=== PATIENT | male | born 1990 | race African-American/Black ===

== ENCOUNTER 2019-02-10 17:56 | Observation (INO) ==
--- NOTE | 2019-02-10 18:12 | Emergency Department Note ---
ED Disposition Clinical Impression: Dehydration Heat exhaustion Qualifiers: Encounter type: initial encounter Qualified Code(s): T67.5XXA - Heat exhaustion, unspecified, initial encounter Heat cramps Qualifiers: Encounter type: initial encounter Qualified Code(s): T67.2XXA - Heat cramp, ini tial encounter Leukocytosis Qualifiers: Leukocytosis type: unspecified Qualified Code(s): D72.829 - Elevated white blood cell count, unspecified Disposition: Admitted as Observation Condition on Discharge: Fair Referrals: Provider,Referral, [Primary Care Provider] - - Critical Care Critical Care Time: No Attestation: On 02/10/19, the high probability of a clinically significant, sudden or life threatening deterioration of the following system(s) required my full and direct attention, intervention and personal management. The time I documented below is in addition to time spent performing reported procedures but includes the following listed in this critical care notation. Medical Decision Making - [place] Inquiry Pt receiving controlled substance: No Vital Signs: 02/10/19 17:58 Temperature 98.8 F Temperature Source Oral Pulse Rate [Right] 94 H Respiratory Rate 20 Blood Pressure [Right Arm] 124/71 Blood Pressure Mean [Right Arm] 88 Blood Pressure Source [Right Arm] Automatic Cuff Blood Pressure Position [Right Arm] Supine 02 Sat by Pulse Oximetry 100 Oxygen Delivery Method Room Air - Lab Data Lab Results 02/10/19 18:00: WBC 23.6 H*, RBC 5.71, Hgb 16.7, Hct 53.2 H, MCV 93.3, MCH 29.3, MCHC 31.4 L, RDW 13.8, Plt Count 521 H, MPV 7.1 L, Neut % (Auto) 78.0, Lymph % (Auto) 14.2, [place] % (Auto) 5.9, Eos % (Auto) 1.6, Baso % (Auto) 0.4, Neut # (Auto) 18.4 H, Lymph # (Auto) 3.3, [place] # (Auto) 1.4 H, Eos # (Auto) 0.4, Baso # (Auto) 0.1 02/10/19 18:00: Sodium 136, Potassium 3.6, Chloride 93 L, Carbon Dioxide 24, Anion Gap 22.6 H, BUN 25 H, Creatinine 1.97 H, Estimated Creat Clear 64, Estimated GFR 40 L, Est GFR ( Amer) 49 L, Glucose 141 H, Calcium 10.5 H, Total Bilirubin 1.3 H, AST 27, ALT 22, Alkaline Phosphatase 201 H, Total Protein 9.7 H, Albumin 5.6 H, Globulin 4.1 H, Albumin/Globulin Ratio 1.4 02/10/19 18:00: Total Creatine Kinase 396 H, CK-MB (CK-2) 1.0, CK-MB (CK-2) Rel Index 0.3, Troponin I < 0.02, Lipase 48 L 02/10/19 19:15: Lactate 2.2 H Result diagrams: 02/10/19 18:00 02/10/19 18:00 Orders (Tests/Meds): ED MEDICATIONS Generic Name Dose Route Start Last Admin Trade Name Freq PRN Reason Stop Dose Admin Sodium Chloride 1,000 mls @ 999 mls/hr 02/10/19 18:15 02/10/19 18:13 Sod Chlor 0.9% 1000ml Bag IV 02/10/19 19:15 999 mls/hr .[id number] MARIA GUADALUPE Administration Discontinued Medications Generic Name Dose Route Start Last Admin Trade Name Freq PRN Reason Stop Dose Admin Ondansetron HCl 4 mg 02/10/19 18:11 02/10/19 18:13 Zofran 4mg/2ml Vial IV 02/10/19 18:12 4 mg ONCE ONE Administration Promethazine HCl 12.5 mg 02/10/19 18:46 02/10/19 18:54 Phenergan 25mg/Ml 1ml Vial IV 02/10/19 18:47 12.5 mg ONCE ONE Administration Sodium Chloride 25 ml 02/10/19 18:46 02/10/19 18:55 Sod Chlor 0.9% 25ml Bag IV 02/10/19 18:47 25 ml ONCE ONE Administration Sodium Chloride 1,000 ml 02/10/19 19:13 02/10/19 19:19 Sod Chlor 0.9% 1000ml Bag IV 02/10/19 19:14 1,000 ml BOLUS ONE Administration ORDERS Category Date Time Status CT abdomen pelvis wo con Stat Cat Scan 02/10/19 18:45 Taken Chest XR 2 view (NOT portable) [XR chest 2V] Stat Exams 02/10/19 18:44 Taken Complete Blood Count Auto Diff Stat Lab 02/10/19 18:00 Results Drug Screen,Urine Stat Lab 02/10/19 18:18 Ordered Urinalysis and Microscopic Stat Lab 02/10/19 18:18 Ordered Blood Culture Stat Micro 02/10/19 19:15 Received - CT Data CT Scan: Abdomen, Pelvis Time Received: 19:[address] Reviewed: Yes: I have viewed the radiologist's interpretation Findings Narrative: CT scan interpreted by [facility] radiologist. Faxed report received and reviewed: No acute intra-abdominal abnormality. Normal appendix. - ECG Data Tracing #1 EKG interpreted by Caesar Arredondo MD: Rhythm: sinus Rate: 84 [place]: normal Ectopy: none Conduction: normal ST Segment Changes: none T Wave Changes: none Q Waves: none No evidence of acute ischemia or injury - Physician Consults Physician Consulted: nikhil Lara Time: 20:16 Reason -: Admission Comment/Response: Agrees to admit the patient to the hospital. We discussed the patient's clinical information, including history, exam, laboratory and radiology results and ED course. Per hospital procedure, I will write temporary bridge inpatient orders on the patient. Specific orders requested by the admitting physician: Continue IV fluids General Adult HPI - General Chief complaint: Dizziness Stated complaint: cramping, tingling in arms Time Seen by Provider: 02/10/19 18:12 Mode of Arrival: Ambulatory Limitations: No Limitations Description of Symptoms (Recalled from ER Triage Doc. by RN): Naldo working in the heat all day and started to cramp up and tingling and vomiting for the last hour - History of Present Illness HPI narrative: States he has been working out in the heat building fence all day. States he has been drinking water all day. An hour ago he began tingling all over his body, cramping all over his body, having lower abdominal pain, and vomiting. His mother says "I think his potassium bottomed out". She says "he down to bunch of water all at once". She says "he is dehydrated". Denies chest pain or shortness of breath. Mother says he has a history of renal tubular acidosis. - Related Data Home Medications Medication Instructions Recorded Confirmed Buprenorphine HCl/Naloxone HCl 1.5 each SL DAILY 10/01/17 12/20/18 [Suboxone 8 mg-2 mg Sl Film] Quetiapine Fumarate 50 mg PO DAILY 12/20/18 12/20/18 Previous Rx's Medication Instructions Recorded levoFLOXacin [Levaquin 500mg 500 mg PO DAILY #7 tab 12/20/18 tab] Allergies Allergy/AdvReac Type Severity Reaction Status Date / Time No Known Allergies Allergy Verified 01/14/18 11:40 [facility] History - Hepatitis A Screen Drug use history?: No High risk sexual behaviors?: No History of sexually transmitted infection?: No Currently employed?: No Childcare worker?: No Do you have indoor plumbing?: Yes Do you have electricity?: Yes Attestation statement:: This patient has been screened for Hepatitis A risk factors. I have reviewed the patient's past medical history: Yes Medical History: Denies:: Diabetes Mellitus Type 1, Diabetes Mellitus Type 2 Laterality Cases: Bilateral: Tonsillectomy - Social History Educational Level: Completed High School Smoking Status: Current every day smoker Tobacco Type: cigarettes # Packs/Day (cigarettes): 1 #Yrs smoked (if former smoker): 1 Alcohol Intake: never Substance Use Type: opiates Occupational Status: unemployed Housing: house Household Members: family ROS Obtained: Yes All systems reviewed & no additional complaints - Constitutional Constitutional: Reports weakness - Cardiovascular Cardiovascular: Denies chest pain - Respiratory Respiratory: No dyspnea - Gastrointestinal Gastrointestingal: Reports: abdominal pain, vomiting. Denies: diarrhea - Musculoskeletal Musculoskeletal: Reports muscle cramps - Neurologic Neurologic: Reports tingling Physical Exam - General General appearance: alert, anxious - Head Head exam: atraumatic, normocephalic - Eye Eye exam: Present: normal appearance, EOMI - ENT ENT exam: Present: mucous membranes moist - Neck Neck exam: Present: normal inspection, trachea midline - Chest Chest inspection: Present: normal inspection, symmetric chest wall rise - Respiratory Respiratory exam: Present: normal lung sounds bilaterally. Absent: respiratory distress - Cardiovascular Cardiovascular exam: Present: regular rate, normal rhythm, normal heart sounds - Abdominal Exam Abdominal exam: Present: soft, tenderness, normal bowel sounds. Absent: distention, guarding, rebound, rigidity Abdominal tenderness: Present: diffuse, mild - Extremities Exam Extremities exam: Present: normal inspection - Neurological Exam Neurological exam: Present: alert, oriented X3, CN II-XII intact. Absent: motor sensory deficit - Psychiatric Psychiatric exam: Present: anxious - Skin Skin exam: Present: warm, dry
[2019-02-10 18:27] LABS: Basophils # 0.1 K/mm3 (0-0.2); Basophils % 0.4 % (0.1-2.0); Eosinophils # 0.4 K/mm3 (0.0-0.4); Eosinophils % 1.6 % (0.1-12.0); Hematocrit 53.2 % (42.0-52.0); Hemoglobin 16.7 g/dL (14.1-18.0); Lymphocytes # 3.3 K/mm3 (0.7-4.5); Lymphocytes % 14.2 % (10-50); Mean Corpuscular HGB Conc 31.4 g/dL (31.8-35.4); Mean Corpuscular Volume 93.3 fl (80-94); Mean Platelet Volume 7.1 fl (7.4-10.4); Monocytes # 1.4 K/mm3 (0.1-1.0); Monocytes % 5.9 % (1.7-9.3); Neutrophils # 18.4 K/mm3 (1.8-7.8); Platelet Count 521 K/mm3 (142-424); Red Blood Count 5.71 M/mm3 (4.60-6.20); Red Cell Distribution Width 13.8 % (11.5-17.5); White Blood Count 23.6 K/mm3 (4.8-10.8)
[2019-02-10 18:37] LABS: Albumin Level 5.6 gm/dL (3.4-5.0); Albumin/Globulin Ratio 1.4 (1.1-1.8); Anion Gap 22.6 mEq/L (5-15); Bilirubin,Total 1.3 mg/dL (0.2-1.0); Calcium 10.5 mg/dL (8.5-10.1); Globulin 4.1 gm/dl (1.3-3.2); Total Protein,Serum 9.7 gm/dL (6.4-8.2)
[2019-02-10 18:50] LABS: Creatine Kinase 396 U/L (39-308)
[2019-02-10 20:16] LABS: Anisocytosis 1+; Lymphocytes % 20 % (10-50); Monocytes % 2 % (2-9); Neutrophils % 77 % (42-76); Total Cells Counted 100
[2019-02-10 22:12] LABS: Appearance,Urine CLEAR (Clear); Blood, Urine TRACE-L (Negative); Color,Urine YELLOW (Yellow); Glucose,Urine (UA) Negative (Negative); Ketones,Urine 3+ (Negative); Leukocyte Esterase,Urine Negative (Negative); Microscopic, Urine URINE MICROSCOPIC (MICROSCOPIC); Protein,Urine TRACE (Negative); Specific Gravity, Urine 1.025 (1.005-1.030)
[2019-02-10 22:22] LABS: Amphetamine/Metha Screen,Urine Negative ng/mL (<1000); Barbiturates Screen,Urine Negative ng/mL (<200); Benzodiazepines Screen,Urine Negative ng/mL (<200); Cannabinoid Screen,Urine Positive ng/mL (<50); Cocaine Screen,Urine Negative ng/mL (<300); Methadone Screen,Urine Negative ng/mL (<300); Opiate Screen,Urine Negative ng/mL (<300); Phencyclidine Screen,Urine Negative ng/mL (<25)
[2019-02-10 22:53] LABS: Bilirubin,Urine Negative (Negative)
[2019-02-10 23:09] LABS: WBC,Urine Occasional #/hpf (0-3)
[2019-02-10 23:10] LABS: Bacteria,Urine Trace /lpf; Hyaline Casts,Urine Occasional #/lpf (0); Squamous Epithelial Cell,Urine Occasional #/hpf (0-5)
[2019-02-11 07:19] LABS: Anion Gap 19.3 mEq/L (5-15)
[2019-02-11 07:22] LABS: Basophils # 0.1 K/mm3 (0-0.2); Basophils % 0.3 % (0.1-2.0); Eosinophils % 0.2 % (0.1-12.0); Hematocrit 44.3 % (42.0-52.0); Lymphocytes # 1.4 K/mm3 (0.7-4.5); Lymphocytes % 8.1 % (10-50); Mean Corpuscular HGB Conc 30.2 g/dL (31.8-35.4); Mean Corpuscular Volume 95.4 fl (80-94); Mean Platelet Volume 7.2 fl (7.4-10.4); Monocytes # 0.7 K/mm3 (0.1-1.0); Neutrophils # 14.5 K/mm3 (1.8-7.8); Neutrophils % 87.4 % (37.0-80.0); Platelet Count 403 K/mm3 (142-424); Red Blood Count 4.65 M/mm3 (4.60-6.20); Red Cell Distribution Width 13.8 % (11.5-17.5); White Blood Count 16.6 K/mm3 (4.8-10.8)
--- NOTE | 2019-02-11 07:38 | Pharmacy Consult Notes ---
[facility] Pharmacy VTE Monitoring - Patient Demographics Admission date: 02/10/19 Report Date: 02/11/19 Time: 07:38 Allergies/Adverse Reactions: Patient Allergies No Known Allergies Allergy (Verified 01/14/18 11:40) Height: 1.68 m Weight: 70.364 kg Patient Problems: Current Active Problems Heat exhaustion (Acute) Dehydration (Acute) Heat cramps (Acute) Leukocytosis (Acute) - VTE Risk Labs: VTE Related Lab Results Hgb 16.7 g/dL (14.1-18.0) 02/10/19 18:00 Hct 53.2 % (42.0-52.0) H 02/10/19 18:00 Plt Count 521 K/mm3 (142-424) H 02/10/19 18:00 BUN 25 mg/dL (7-18) H 02/10/19 18:00 Creatinine 1.97 mg/dL (0.70-1.30) H 02/10/19 18:00 Estimated Creat Clear 64 mL/min (50-200) 02/10/19 18:00 Was VTE Risk Assessment Performed: Yes VTE Score: 2 VTE Risk Level: Very Low Risk - Prophylaxis VTE Prophylaxis Ordered?: Yes Types of VTE Prophylaxis: TEDS Knee High Location of Applied Device: Bilateral Lower Extremeties - VTE Diagnosis Confirmed Treatment or plan recommended: Continue Current Treatment
[2019-02-11 07:57] LABS: Hemoglobin 13.4 g/dL (14.1-18.0)
[2019-02-11 08:20] LABS: Calcium 8.6 mg/dL (8.5-10.1)
[2019-02-11 08:59] VITALS: BP 111/45
[2019-02-11 10:16] LABS: Lymphocytes % 8 % (10-50); Monocytes % 5 % (2-9); Neutrophils % 87 % (42-76); Total Cells Counted 100
[2019-02-11 10:17] LABS: RBC Morphology Normal
--- NOTE | 2019-02-11 13:14 | H&P/Discharge Summary ---
General - General Admission date:: 02/10/19 Discharge date: 02/11/19 *Admission Date: 02/10/19 *History of present illness: 28 YOM sleeping quietly, awakens easily. Denies N/V and reports he feels better this morning. He has tolerated fluids W/O difficulty. States he has been working out in the heat building fence all day. States he has been drinking water all day. An hour ago he began tingling all over his body, cramping all over his body, having lower abdominal pain, and vomiting. His mother says "I think his potassium bottomed out". She says "he down to bunch of water all at once". She says "he is dehydrated". Denies chest pain or shortness of breath. (Per Dr. Arredondo). [facility] History Medical History: Denies:: Cancer, Diabetes Mellitus Type 1, Diabetes Mellitus Type 2, MRSA *Have you ever received a pneumonia vaccine?: No *Have you received a flu vaccine this season?: No Laterality Cases: Bilateral: Tonsillectomy Other Surgeries: Yes: Hernia Repair, Other (Spider bite) Amputation: No Fractures: No - *Social History Educational Level: Attended High School Smoking Status: Current every day smoker Tobacco Type: cigarettes, e-cigarettes # Packs/Day (cigarettes): 1 #Yrs smoked (if former smoker): 1 Alcohol Intake: never Substance Use Type: opiates *Occupational Status:: unemployed Housing: house Household Members: family *Travel in the last 8 weeks: None Family Hx:: No significant family history Review of Systems - Review of Systems Review of systems:: pertinent systems reviewed and negative unless documented below - Constitutional Reports fatigue, Reports lack of energy, Denies body ache(s) - ENT Denies pain with swallowing, Denies sinus pressure - *Cardiovascular Denies chest pain, Denies irregular heart rhythm - *Respiratory Denies chest congestion, Denies shortness of breath - *Gastrointestinal Reports nausea, Denies coffee ground vomit, Denies difficulty swallowing - *Genitourinary Denies painful urination, Denies scrotal swelling - *Musculoskeletal Denies joint pain, Denies decreased muscle mass - Integumentary/Breasts Denies bleeding lesions, Denies yellowing of the skin - *Neurologic Reports tingling, Reports weakness, Denies abnormal hearing, Denies seizure-like activity - Psychiatric Denies thoughts of hurting/killing others, Denies thoughts of hurting/killing yourself - Endocrine Denies rapid, pounding, or irregular heartbeat - Hematologic/Lymphatic Denies easy bleeding, Denies easy bruising - Allergic/Immunologic Denies lip swelling, Denies throat swelling Exam Vital signs and Labs for Last 24 Hours: Temp Pulse Resp BP Pulse Ox 98.9 F 87 18 111/45 L 100 02/11/19 08:57 02/11/19 08:57 02/11/19 08:57 02/11/19 08:57 02/11/19 08:57 Laboratory Results - last 24 hr 02/10/19 18:00: WBC 23.6 H*, RBC 5.71, Hgb 16.7, Hct 53.2 H, MCV 93.3, MCH 29.3, MCHC 31.4 L, RDW 13.8, Plt Count 521 H, MPV 7.1 L, Neut % (Auto) 78.0, Lymph % (Auto) 14.2, [place] % (Auto) 5.9, Eos % (Auto) 1.6, Baso % (Auto) 0.4, Neut # (Auto) 18.4 H, Lymph # (Auto) 3.3, [place] # (Auto) 1.4 H, Eos # (Auto) 0.4, Baso # (Auto) 0.1, Total Counted 100, Neutrophils % (Manual) 77 H, Lymphocytes % (Manual) 20, Monocytes % (Manual) 2, Basophils % (Manual) 1.0, Platelet Estimate Normal, Anisocytosis 1+ 02/10/19 18:00: Sodium 136, Potassium 3.6, Chloride 93 L, Carbon Dioxide 24, Anion Gap 22.6 H, BUN 25 H, Creatinine 1.97 H, Estimated Creat Clear 64, Estimated GFR 40 L, Est GFR ( Amer) 49 L, Glucose 141 H, Calcium 10.5 H, Total Bilirubin 1.3 H, AST 27, ALT 22, Alkaline Phosphatase 201 H, Total Protein 9.7 H, Albumin 5.6 H, Globulin 4.1 H, Albumin/Globulin Ratio 1.4 02/10/19 18:00: Total Creatine Kinase 396 H, CK-MB (CK-2) 1.0, CK-MB (CK-2) Rel Index 0.3, Troponin I < 0.02, Lipase 48 L 02/10/19 19:15: Lactate 2.2 H 02/10/19 22:00: Urine Color Yellow, Urine Appearance Clear, Urine pH 6.0, Ur Specific [place] 1.025, Urine Protein Trace, Urine Glucose (UA) Negative, Urine Ketones 3+, Urine Blood Trace-l, Urine Nitrate Negative, Urine Bilirubin Negative, Urine Urobilinogen 1.0, Ur Leukocyte Esterase Negative, Urine WBC Occasional, Ur Squamous Epith Cells Occasional, Urine Bacteria Trace, Hyaline Casts Occasional 02/10/19 22:00: Urine Opiates Screen Negative, Urine Methadone Screen Negative, Ur Barbituates Screen Negative, Ur Phencyclidine Scrn Negative, Ur Amphetamines Screen Negative, U Benzodiazepines Scrn Negative, Urine Cocaine Screen Negative, U Marijuana (THC) Screen Positive H 02/10/19 23:23: Lactate 1.2 02/11/19 06:34: WBC 16.6 H D, RBC 4.65, Hgb 13.4 L D, Hct 44.3, MCV 95.4 H, MCH 28.8, MCHC 30.2 L, RDW 13.8, Plt Count 403, MPV 7.2 L, Neut % (Auto) 87.4 H, Lymph % (Auto) 8.1 L, [place] % (Auto) 4.0, Eos % (Auto) 0.2, Baso % (Auto) 0.3, Neut # (Auto) 14.5 H, Lymph # (Auto) 1.4, [place] # (Auto) 0.7, Eos # (Auto) 0.0, Baso # (Auto) 0.1, Total Counted 100, Neutrophils % (Manual) 87 H, Lymphocytes % (Manual) 8 L, Monocytes % (Manual) 5, Platelet Estimate Normal, RBC Morphology Normal 02/11/19 06:34: Sodium 137, Potassium 4.3, Chloride 101, Carbon Dioxide 21, Anion Gap 19.3 H, BUN 12 D, Creatinine 0.69 L D, Estimated Creat Clear 157, Estimated GFR 136, Est GFR ( Amer) 164 D, Glucose 104 D, Calcium 8.6 D I & O for Last 24 hours: Intake & Output 02/08/19 02/09/19 02/10/19 02/11/19 23:59 23:59 23:59 23:59 Intake Total 2120 / 2120 2186 / 2186 Output Total 550 / 550 600 / 600 Balance 1570 / 1570 1586 / 1586 Weight 155 lb 2 oz - Constitutional no acute distress - *Routine HEENT Exam Head: Present: normocephalic, atraumatic. Absent: scalp tenderness, tenderness of temporal artery Eye: Present: EOMI, PERRL, normal accommodation. Absent: conjunctival icterus, periorbital tenderness ENT: Present: mucous membranes dry. Absent: sinus tenderness - *Routine Neck Exam Present: supple, full ROM, trachea midline. Absent: JVD, tracheal deviation - *Routine Respiratory Exam Present: CTA bilaterally. Absent: accessory muscle use - *Routine Cardiovascular Exam Present: RRR. Absent: irregular rhythm, JVD - *Routine Abdominal Exam Present: soft, normoactive bowel sounds. Absent: tenderness, firm - *Routine Extremities Exam Present: full ROM, pulses intact. Absent: cyanosis, calf tenderness - Routine Back/Spine/Pelvis Exam Back/Spine: Present: full ROM. Absent: CVA tenderness, pain with flexion - *Routine Skin Exam Present: intact. Absent: cyanosis, wounds - *Routine Neurological Exam Present: alert, oriented X3, CN II-XII intact, moving all extremities. Absent: altered mental status, tremors Hospital Course Hospital Course: 28 YOM States he has been working out in the heat building fence all day. States he has been drinking water all day. An hour ago he began tingling all over his body, cramping all over his body, having lower abdominal pain, and vomiting. His mother says "I think his potassium bottomed out". She says "he down to bunch of water all at once". She says "he is dehydrated". Denies chest pain or shortness of breath. Mother says he has a history of renal tubular acidosis. In the ED he rec Zofran Phenergan IVP and 3 Liters of IVF In ED H/H 16.7/53.2 Na 136, K 3.6, BUN/CR 25/1.97, After IVF 02/11/19 0600 H/H 13.4/44.3 Na 137, K 4.3, BUN/CR 12/0.69 TROP NEG CXR No acute findings Abd/Pelvic CT No acute findings He denies N/V and is agreeable to D/C to home He has sukhdeep fluids/solids without difficulty. Results Labs on day of discharge: Labs from last 24 hours 02/11/19 02/11/19 02/10/19 06:34 06:34 23:23 WBC 16.6 H D RBC 4.65 Hgb 13.4 L D Hct 44.3 MCV 95.4 H MCH 28.8 MCHC 30.2 L RDW 13.8 Plt Count 403 MPV 7.2 L Neut % (Auto) 87.4 H Lymph % (Auto) 8.1 L [place] % (Auto) 4.0 Eos % (Auto) 0.2 Baso % (Auto) 0.3 Neut # (Auto) 14.5 H Lymph # (Auto) 1.4 [place] # (Auto) 0.7 Eos # (Auto) 0.0 Baso # (Auto) 0.1 Total Counted 100 Neutrophils % (Manual) 87 H Lymphocytes % (Manual) 8 L Monocytes % (Manual) 5 Basophils % (Manual) Platelet Estimate Normal RBC Morphology Normal Anisocytosis Sodium 137 Potassium 4.3 Chloride 101 Carbon Dioxide 21 Anion Gap 19.3 H BUN 12 D Creatinine 0.69 L D Estimated Creat Clear 157 Estimated GFR 136 Est GFR ( Amer) 164 D Glucose 104 D Lactate 1.2 Calcium 8.6 D Total Bilirubin AST ALT Alkaline Phosphatase Total Creatine Kinase CK-MB (CK-2) CK-MB (CK-2) Rel Index Troponin I Total Protein Albumin Globulin Albumin/Globulin Ratio Lipase Urine Color Urine Appearance Urine pH Ur Specific [place] Urine Protein Urine Glucose (UA) Urine Ketones Urine Blood Urine Nitrate Urine Bilirubin Urine Urobilinogen Ur Leukocyte Esterase Urine WBC Ur Squamous Epith Cells Urine Bacteria Hyaline Casts Urine Opiates Screen Urine Methadone Screen Ur Barbituates Screen Ur Phencyclidine Scrn Ur Amphetamines Screen U Benzodiazepines Scrn Urine Cocaine Screen U Marijuana (THC) Screen 02/10/19 02/10/19 02/10/19 22:00 22:00 19:15 WBC RBC Hgb Hct MCV MCH MCHC RDW Plt Count MPV Neut % (Auto) Lymph % (Auto) [place] % (Auto) Eos % (Auto) Baso % (Auto) Neut # (Auto) Lymph # (Auto) [place] # (Auto) Eos # (Auto) Baso # (Auto) Total Counted Neutrophils % (Manual) Lymphocytes % (Manual) Monocytes % (Manual) Basophils % (Manual) Platelet Estimate RBC Morphology Anisocytosis Sodium Potassium Chloride Carbon Dioxide Anion Gap BUN Creatinine Estimated Creat Clear Estimated GFR Est GFR ( Amer) Glucose Lactate 2.2 H Calcium Total Bilirubin AST ALT Alkaline Phosphatase Total Creatine Kinase CK-MB (CK-2) CK-MB (CK-2) Rel Index Troponin I Total Protein Albumin Globulin Albumin/Globulin Ratio Lipase Urine Color Yellow Urine Appearance Clear Urine pH 6.0 Ur Specific [place] 1.025 Urine Protein Trace Urine Glucose (UA) Negative Urine Ketones 3+ Urine Blood Trace-l Urine Nitrate Negative Urine Bilirubin Negative Urine Urobilinogen 1.0 Ur Leukocyte Esterase Negative Urine WBC Occasional Ur Squamous Epith Cells Occasional Urine Bacteria Trace Hyaline Casts Occasional Urine Opiates Screen Negative Urine Methadone Screen Negative Ur Barbituates Screen Negative Ur Phencyclidine Scrn Negative Ur Amphetamines Screen Negative U Benzodiazepines Scrn Negative Urine Cocaine Screen Negative U Marijuana (THC) Screen Positive H 02/10/19 02/10/19 02/10/19 18:00 18:00 18:00 WBC 23.6 H* RBC 5.71 Hgb 16.7 Hct 53.2 H MCV 93.3 MCH 29.3 MCHC 31.4 L RDW 13.8 Plt Count 521 H MPV 7.1 L Neut % (Auto) 78.0 Lymph % (Auto) 14.2 [place] % (Auto) 5.9 Eos % (Auto) 1.6 Baso % (Auto) 0.4 Neut # (Auto) 18.4 H Lymph # (Auto) 3.3 [place] # (Auto) 1.4 H Eos # (Auto) 0.4 Baso # (Auto) 0.1 Total Counted 100 Neutrophils % (Manual) 77 H Lymphocytes % (Manual) 20 Monocytes % (Manual) 2 Basophils % (Manual) 1.0 Platelet Estimate Normal RBC Morphology Anisocytosis 1+ Sodium 136 Potassium 3.6 Chloride 93 L Carbon Dioxide 24 Anion Gap 22.6 H BUN 25 H Creatinine 1.97 H Estimated Creat Clear 64 Estimated GFR 40 L Est GFR ( Amer) 49 L Glucose 141 H Lactate Calcium 10.5 H Total Bilirubin 1.3 H AST 27 ALT 22 Alkaline Phosphatase 201 H Total Creatine Kinase 396 H CK-MB (CK-2) 1.0 CK-MB (CK-2) Rel Index 0.3 Troponin I < 0.02 Total Protein 9.7 H Albumin 5.6 H Globulin 4.1 H Albumin/Globulin Ratio 1.4 Lipase 48 L Urine Color Urine Appearance Urine pH Ur Specific [place] Urine Protein Urine Glucose (UA) Urine Ketones Urine Blood Urine Nitrate Urine Bilirubin Urine Urobilinogen Ur Leukocyte Esterase Urine WBC Ur Squamous Epith Cells Urine Bacteria Hyaline Casts Urine Opiates Screen Urine Methadone Screen Ur Barbituates Screen Ur Phencyclidine Scrn Ur Amphetamines Screen U Benzodiazepines Scrn Urine Cocaine Screen U Marijuana (THC) Screen - Additional Comments Rounded w/ Dr. Lara, alll orders per Dr. Lara 1. Will D/C home 2. F/U next week PCP DS: Diagnosis - Discharge Diagnosis (1) Vomiting Status: Acute (2) Heat exhaustion Status: Acute (3) Tetrahydrocannabinol (THC) use disorder, mild, abuse Status: Acute (4) Dehydration Status: Acute (5) Heat cramps Status: Acute (6) Leukocytosis Status: Acute Discharge Plan - Patient Discharge Instructions ACTIVITY: Continue current activity DIET: continue same diet Patient Instructions: DI for Heat Exhaustion and Heat Stroke, Heat Exhaustion and Heat Stroke, Dehydration, DI for Dehydration -- Adult, DI for Leukocytosis - Follow up Plan Follow up with: Leonides Lara MD [Staff Physician] - 2 weeks Disposition: Home, Self-Shelter Medications: Home Medications Medication Instructions Recorded Confirmed Type Buprenorphine HCl/Naloxone HCl 1.5 each SL DAILY 02/11/19 02/11/19 History [Buprenorphin-Naloxon 8-2 mg Sl] Fluoxetine HCl [Prozac 20mg 20 mg PO DAILY 02/11/19 02/11/19 History Capsule] Quetiapine Fumarate [Seroquel 100 mg PO BID 02/11/19 02/11/19 History 100mg tablet] Prescriptions/Medication Reconciliation: Continued Quetiapine Fumarate [Seroquel 100mg tablet] 100 mg PO BID Buprenorphine HCl/Naloxone HCl [Buprenorphin-Naloxon 8-2 mg Sl] 1.5 each SL DAILY Fluoxetine HCl [Prozac 20mg Capsule] 20 mg PO DAILY - Problem Reconciliation Problems Reviewed?: Yes
--- NOTE | 2019-02-13 19:17 | Electrocardiograph Report ---
APPROVED REPORT Exam: Resting ECG HR:84 bpm ECG Measurements Heart Rate 84 AXES ME 154 P 75 QRSd 82 QRS 84 QT 408 T80 QTc 482 <Conclusion> Normal sinus rhythm Prolonged QT Abnormal ECG Electronically signed by : Buddy Olson, 02/13/2019 19:17:20
== END 2019-02-11 15:16 | disposition home or self-care (01) ==
LOC: ER 17:56 → 2ND 17:56
PROVIDERS: ADMIT Emergency Medicine; ATTEND Emergency Medicine
CPT/HCPCS: 36415; 71020; 71046; 74176; 80048; 80053; 80305; 81001; 82550; 82553; 83605; 83690; 84484; 85007; 85025; 87040; 87077; 87186; 93005; 96365; 96366; 96375; 99285; G0378; J0571; J2405

== ENCOUNTER → 2019-09-17 11:38 | Outpatient (CLI) | payer OTHER, SELFPAY ==
--- NOTE | 2019-09-17 11:54 | CA_ITS ---
APPROVED REPORT Bilateral Lower Extremity Venous Study for DVT. 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: CT Indications edema in BLE Vein Imaging CFV (R): compressive, spontaneous, phasic, augmentation SFJ (R): compressive, spontaneous, phasic, augmentation FEM (R): compressive, spontaneous, phasic, augmentation POP (R): compressive, spontaneous, phasic, augmentation DFV (R): compressive, spontaneous, phasic, augmentation PTV (R): compressive, spontaneous, phasic, augmentation GSV (R): compressive, spontaneous, phasic, augmentation SSV (R): compressive, spontaneous, phasic, augmentation, Not Visualized Peroneals (R):compressive, spontaneous, phasic, augmentation GAS (R): compressive, spontaneous, phasic, augmentation EIV (L): compressive, spontaneous, phasic, augmentation CFV (L): compressive, spontaneous, phasic, augmentation SFJ (L): compressive, spontaneous, phasic, augmentation FEM (L): compressive, spontaneous, phasic, augmentation POP (L): compressive, spontaneous, phasic, augmentation DFV (L): compressive, spontaneous, phasic, augmentation PTV (L): compressive, spontaneous, phasic, augmentation GSV (L): compressive, spontaneous, phasic, augmentation SSV (L): Not Visualized Peroneals (L):compressive, spontaneous, phasic, augmentation GAS (L): compressive, spontaneous, phasic, augmentation Findings Bilateral venous negative for DVT/SVT, vessels fully compressible no reflux noted. Bilateral enlarged groin lymph nodes. Conclusion No evidence of DVT or superficial thrombophlebitis in the veins scanned of the right lower extremity. No evidence of DVT or superficial thrombophlebitis in the veins scanned of the left lower extremity. Bilateral enlarged groin lymph nodes. Electronically signed by : Srinivas Grier MD 09/17/2019 17:07:19
[2019-09-17 12:31] LABS: White Blood Count 11.4 K/mm3 (4.8-10.8)
[2019-09-17 12:32] LABS: Basophils # 0.1 K/mm3 (0-0.2); Eosinophils # 0.5 K/mm3 (0.0-0.4); Eosinophils % 4.8 % (0.1-12.0); Hematocrit 41.1 % (42.0-52.0); Lymphocytes # 2.4 K/mm3 (0.7-4.5); Lymphocytes % 20.7 % (10-50); Mean Corpuscular HGB Conc 31.6 g/dL (31.8-35.4); Mean Corpuscular Volume 91.7 fl (80-94); Mean Platelet Volume 6.9 fl (7.4-10.4); Monocytes # 0.7 K/mm3 (0.1-1.0); Monocytes % 5.9 % (1.7-9.3); Neutrophils # 7.7 K/mm3 (1.8-7.8); Neutrophils % 67.7 % (37.0-80.0); Platelet Count 367 K/mm3 (142-424); Red Blood Count 4.48 M/mm3 (4.60-6.20); Red Cell Distribution Width 13.9 % (11.5-17.5)
[2019-09-17 12:43] LABS: Chloride 101 mmol/L (98-107)
[2019-09-17 12:44] LABS: Potassium 4.5 mmoL/L (3.5-5.1); Sodium 138 mmol/L (136-145)
[2019-09-17 12:46] LABS: Alanine Aminotransferase 40 U/L (12-78); Anion Gap 11.5 mEq/L (5-15); Aspartate Amino Transferase 39 U/L (17-59); Bilirubin,Unconjugated 0.8 mg/dL (0.0-1.1); Blood Urea Nitrogen 13 mg/dl (9-20); Carbon Dioxide 30 mmol/L (22.0-30.0); Estimated Glomerular Filt Rate 132 ml/min (>60); GFR (African American) 160 ML/MIN (>60)
[2019-09-17 12:47] LABS: Albumin Level 4.6 g/dl (3.5-5.0); Alkaline Phosphatase 186 U/L (38-126); Bilirubin,Indirect 0.6 mg/dL (0.0-0.9); Bilirubin,Total 0.6 mg/dl (0.2-1.3); Calcium 9.5 mg/dl (8.4-10.2); Glucose 91 mg/dl (74-100); Total Protein,Serum 7.1 g/dl (6.3-8.2)
[2019-09-17 12:59] LABS: NT Pro Brain Natriuretic Pep. 179 pg/mL (0-125)
[2019-09-17 13:03] LABS: Free T4 (Free Thyroxine) 0.68 ng/dl (0.78-2.19)
[2019-09-17 13:21] LABS: Thyroid Stimulating Hormone 3.48 uIU/mL (0.465-4.68)
== END ==
LOC: LAB 11:40 → RT 11:51
PROVIDERS: Visit Provider Internal Medicine Cardiovascular Disease
DX: R60.9 Edema, unspecified (principal); L81.9 Disorder of pigmentation, unspecified; F17.200 Nicotine dependence, unspecified, uncomplicated
CPT/HCPCS: 36415; 80048; 80076; 83880; 84439; 84443; 85025; 93970

== ENCOUNTER → 2019-09-22 09:38 | Outpatient (CLI) | payer OTHER, SELFPAY ==
--- NOTE | 2019-09-22 09:38 | CA_ITS ---
APPROVED REPORT EXAM: Comprehensive 2D, Doppler, and color-flow Echocardiogram Checkerer Hand: Nara Valadez RVT Ht: 5 ft 8 in Wt: 200lbs BSA: 2.04 BP: 113/38 mmHg Indications: EDEMA,SMOKER,SOA 2D Dimensions LVOT 2.11 cm (M/F) 1.5-2.5 M-Mode Dimensions RVDd 1.86 cm (0.9-2.6) LVDd 3.95 cm (3.5-5.7) LVDs 2.64 cm (3.5-5.7) IVSd 1.39 cm (0.6-1.1) PWd 0.78 cm (0.6-1.1) EF (Teich) 62.30% FS 33.20% EDV (Teich) 67.90 mL ESV (Teich) 25.60 mL LV Diastology E/A Ratio 2.26 Mitral Valve MV A Velocity 44.00 (40-130 cm/s) Left Ventricle Left atrium is normal size, left ventricle is normal size, there is no concentric left ventricular hypertrophy, visually estimated ejection fraction 55% with no regional wall motion abnormality, diastolic parameters are within normal range. Right Ventricle Right atrium and right ventricular normal size and contractility. Aortic Valve Aortic valve is grossly normal, there is no aortic stenosis aortic insufficiency. Mitral Valve Mitral valve is grossly normal, there is trace mitral regurgitation. Tricuspid Valve Tricuspid valve is grossly normal, there is trace tricuspid regurgitation. Pulmonic Valve Pulmonic valve is poorly visualized. Great Vessels Aortic root is normal size. Pericardium No significant pericardial effusion noted. Conclusion 1. Normal left ventricular size, preserved left ventricular systolic function, visually estimated ejection fraction 55% with no regional wall motion abnormality, diastolic parameters are within normal range. 2. Trace mitral and tricuspid regurgitation. 3. No significant pericardial effusion noted. Electronically signed by : Tk Christianson, 09/23/2019 12:17:52
== END ==
PROVIDERS: PCP Nurse Practitioner Family; Visit Provider Internal Medicine Cardiovascular Disease
DX: R60.9 Edema, unspecified (principal); F17.200 Nicotine dependence, unspecified, uncomplicated
CPT/HCPCS: 93306

== ENCOUNTER 2019-11-18 13:30 | Outpatient (RCR) | payer OTHER, SELFPAY ==
--- NOTE | 2019-10-12 13:25 | HMH.PTOPWND ---
Rehab Outpt Wound Evaluation Rehab OP Wound Evaluation Start: 10/12/19 12:58 Freq: Status: Active Protocol: Document 10/12/19 13:15 PHOTIARA (Rec: 10/12/19 13:24 PHORNE [id number]) Electronically Signed By Aiden Allison, PT 10/12/19 13:15 Subjective/History History History Pt uis 29 yowm who presents with c/o B LE edema, blisters and pain x ~ 2-3 mos with insidious onset of symptoms. He reports no blisters currently, but they come and go and when they pop it leaks. He reports pain most of the time, worse with increased edema. US was negative for DVT B but did show enlarged inguinal lymph nodes. Echo was negative for cardiac pathology. He reports no significant PMH. Subjective Subjective Pt c/o pain in B LE 5/10 currently, 8/10 at worst. Lymphedema Eval Classification of Lymphedema Secondary Lymphedema Yes Stemmer's sign Stemmer's Sign yes Stage of Lymphedema Lymphedema stages Stage II (Pitting edema, increased fibrosis w/ decreased pitting) Skin Changes Dry Skin Yes Redness Yes Blisters Yes Discoloration of Skin Yes Other Changes Yes Pain Scale Pain Scale (0-10) 5 Affected Extremities Areas Affected by Lymphedema/Edema Right Lower Extremity,Left Lower Extremity Manual Lymphatic Drainage Treatment Area MLD Treatment Area Right Lower Extremity,Left Lower Extremity Wound Problems/Impairments Impairments Problems/Impairmments Palpation Tenderness,Impaired Work Activities,Increased Edema,Lymphedema Present,Wound Care Needs,Subjective C/O Pain,Impaired Self Care/Self Management Prognosis Rehab Potential Good Clinical Impression Consistent with Diagnosis Yes Short Term Goals Number of Weeks 4 Decreased Palpation Tenderness Yes: to min Decrease Subjective C/O Pain Yes: 3/10 Patient to Understand Lymphedema Yes Treatment and Exercises Decrease Girth Measurments by (cm) Yes: by 10 cm Residential Goals Number of Weeks
--- NOTE | 2019-11-18 14:24 | HMH.RHREAS ---
Rehab Reassessment Rehab OP Re-assessment Start: 11/18/19 14:10 Freq: Status: Active Protocol: Document 11/18/19 14:20 MICHAEL (Rec: 11/18/19 14:24 MICHAEL [id number]) Electronically Signed By Aiden Allison, PT 11/18/19 14:20 Rehab Re-assessment Subjective Subjective Pt reports feeling better with less swelling overall, but some soreness remains. Objective Objective Notes Circumferential measurments: R LE total 191.2 cm which is - 17.2 cm since IE. L LE total 194.9 cm which is - 11.2 cm since IE. Assessment Progress Assessment Progressing as Expected Assessment Notes Much improved edema, pain is decreased as well, palpation tenderness remains. Patient goals met ST,2,3,4 Goals Not Met LT,2,3,4,5,6 Revised Goals none Plan Plan Continue per initial POC Frequency of Therapy 2 x/wk Duration of therapy 8 wks Time and Billing Re-Eval Time 15 Re-Eval Billing Units 1 PHYSICIAN CERTIFICATION: I certify the specified therapy services for Syed Lyn are required, authorized, and reviewed every 30 days.
== END 2019-11-18 13:35 | disposition home or self-care (01) ==
LOC: PT 13:30
PROVIDERS: PCP Nurse Practitioner Family; Visit Provider Nurse Practitioner Family
DX: M79.605 Pain in left leg (principal); M79.604 Pain in right leg
CPT/HCPCS: 97140; 97162; 97164; 97760

== ENCOUNTER → 2020-11-30 09:36 | Outpatient (CLI) | payer OTHER, SELFPAY ==
--- NOTE | 2020-11-30 09:37 | CA_ITS ---
APPROVED REPORT Bilateral Lower Extremity Venous Study for DVT. 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 Lower Extremity Pain: Bilateral Lower Extremity Edema: Bilateral Current Smoker Lower Extremity Swelling: Bilateral BLE pain and swelling Vein Imaging CFV (R): compressive, spontaneous, phasic, augmentation SFJ (R): compressive, spontaneous, phasic, augmentation FEM (R): compressive, spontaneous, phasic, augmentation POP (R): compressive, spontaneous, phasic, augmentation PTV (R): compressive, spontaneous, phasic, augmentation GSV (R): compressive, spontaneous, phasic, augmentation Peroneals (R):compressive, spontaneous, phasic, augmentation GAS (R): compressive, spontaneous, phasic, augmentation CFV (L): compressive, spontaneous, phasic, augmentation SFJ (L): compressive, spontaneous, phasic, augmentation FEM (L): compressive, spontaneous, phasic, augmentation POP (L): compressive, spontaneous, phasic, augmentation PTV (L): compressive, spontaneous, phasic, augmentation GSV (L): compressive, spontaneous, phasic, augmentation Peroneals (L):compressive, spontaneous, phasic, augmentation GAS (L): compressive, spontaneous, phasic, augmentation Findings Study suggests no evidence of DVT or SVT in the bilateral lower extremities. Prominent inguinal lymph nodes noted bilaterally. Subcutaneous soft tissue edema in the right lower extremity. Conclusion Study suggests no evidence of DVT or SVT in the bilateral lower extremities. Prominent inguinal lymph nodes noted bilaterally. Electronically signed by : Tatiana Donis, 12/01/2020 11:57:20
== END ==
PROVIDERS: PCP Nurse Practitioner Family; Visit Provider Physician Assistant
DX: R60.0 Localized edema (principal)
CPT/HCPCS: 93970

== ENCOUNTER → 2021-02-26 18:15 | Outpatient (CLI) | payer OTHER, SELFPAY ==
[2021-02-26 19:02] LABS: Basophils # 0.1 K/mm3 (0-0.2); Basophils % 1.1 % (0.1-2.0); Eosinophils # 0.5 K/mm3 (0.0-0.4); Eosinophils % 4.7 % (0.1-12.0); Hematocrit 45.5 % (42.0-52.0); Hemoglobin 14.2 g/dL (14.1-18.0); Mean Corpuscular HGB Conc 31.3 g/dL (31.8-35.4); Mean Corpuscular Hemoglobin 30.2 pg (27.0-31.2); Mean Corpuscular Volume 96.5 fl (80-94); Mean Platelet Volume 7.6 fl (7.4-10.4); Monocytes # 0.7 K/mm3 (0.1-1.0); Monocytes % 6.9 % (1.7-9.3); Neutrophils # 5.8 K/mm3 (1.8-7.8); Neutrophils % 57.3 % (37.0-80.0); Platelet Count 475 K/mm3 (142-424); Red Blood Count 4.72 M/mm3 (4.60-6.20); Red Cell Distribution Width 13.6 % (11.5-17.5); White Blood Count 10.1 K/mm3 (4.8-10.8)
[2021-02-26 19:21] LABS: Chloride 100 mmol/L (98-107); Potassium 5.1 mmoL/L (3.5-5.1); Sodium 142 mmol/L (136-145)
[2021-02-26 19:24] LABS: Alanine Aminotransferase 36 U/L (12-78); Albumin Level 4.8 g/dl (3.5-5.0); Albumin/Globulin Ratio 1.5 (1.1-1.8); Alkaline Phosphatase 212 U/L (38-126); Anion Gap 18.1 mEq/L (5-15); Aspartate Amino Transferase 42 U/L (17-59); Bilirubin,Total 0.9 mg/dl (0.2-1.3); Blood Urea Nitrogen 13 mg/dl (9-20); Calcium 9.7 mg/dl (8.4-10.2); Carbon Dioxide 29 mmol/L (22.0-30.0); Estimated Glomerular Filt Rate 157 ml/min (>60); GFR (African American) 190 ML/MIN (>60); Globulin 3.2 g/dL (1.3-3.2); Glucose 77 mg/dl (74-100)
[2021-02-26 19:30] LABS: C-Reactive Protein 29.8 mg/L (0-4)
[2021-02-26 20:57] LABS: Erythrocyte Sedimentation Rate 8 mm/hr (0-15)
[2021-02-28 07:34] LABS: Hep A Ab, IgM Negative (Negative); Hepatitis B Core Antibody IgM Negative (Negative); Hepatitis B Surface Antigen Negative (Negative); Hepatitis C Antibody <0.1 s/co ratio (0.0-0.9)
[2021-02-28 08:25] LABS: HSV 1 IgG, Type Spec <0.91 index (0.00-0.90); HSV 2 IgG, Type Spec <0.91 index (0.00-0.90)
[2021-02-28 10:31] LABS: HIV Screen 4th Generation wRfx Non Reactive (Non Reactive)
[2021-02-28 11:46] LABS: Rapid Plasma Reagin Ab Titer Non Reactive (NonRea<1:1)
[2021-02-28 12:11] LABS: Anti-Centromere B Antibodies <0.2 AI (0.0-0.9); Anti-DNA (DS) Ab Qn 1 IU/mL (0-9); Anti-Jo-1 <0.2 AI (0.0-0.9); Anti-Smith Antibody <0.2 AI (0.0-0.9); Antichromatin Antibodies <0.2 AI (0.0-0.9); Antiscleroderma-70 Antibodies <0.2 AI (0.0-0.9); RNP Antibodies 0.2 AI (0.0-0.9); Sjogren's Anti-SS-A <0.2 AI (0.0-0.9); Sjogren's Anti-SS-B <0.2 AI (0.0-0.9)
[2021-02-28 18:18] LABS: Peripheral Smear Review Scanned Result
[2021-03-01 05:09] LABS: Neisseria gonorrhoeae, NAA Negative (Negative)
== END ==
PROVIDERS: Visit Provider Physician Assistant
DX: I89.0 Lymphedema, not elsewhere classified (principal); Z11.4 Encounter for screening for human immunodeficiency virus [HIV]
CPT/HCPCS: 80053; 80074; 85025; 85651; 86140; 86225; 86235; 86592; 86695; 86703; 86790; 87491; 87591; G0432

== ENCOUNTER 2021-07-10 07:05 | Emergency (ER) | payer OTHER, SELFPAY ==
[2021-07-10 07:06] VITALS: BP 140/84; PULSE 89; RESP 16; TEMP 36.7; O2SAT 96; BMI 33.0
--- NOTE | 2021-07-10 07:26 | XR_ITS ---
FINAL REPORT CLINICAL HISTORY: deformity noted r/t fall FINDINGS: LEFT FINGER 3 views were obtained. There is no definite fracture. There is dorsal and medial dislocation of the 5th digit at the PIP joint. There is no soft tissue abnormality. IMPRESSION: 5th digit dislocation as described. Reviewed, Interpreted and Dictated by Richard Lloyd III, MD Transcribed by Tracey Pettit Authenticated by Richard Lloyd III, MD on 07/10/2021 09:19:09 AM [facility]
--- NOTE | 2021-07-10 07:27 | PC.NURSE ---
notified rad of xray order, spoke with eber
--- NOTE | 2021-07-10 07:38 | PC.NURSE ---
ROSAURA MCDONALD at
--- NOTE | 2021-07-10 07:39 | XR_ITS ---
FINAL REPORT CLINICAL HISTORY: post reduction COMPARISON: Earlier the same day FINDINGS: LEFT FINGER There are 3 views were obtained. There has been interval reduction of 5th digit PIP joint dislocation. There is no definite fracture. There is no soft tissue abnormality. IMPRESSION: Interval reduction of 5th digit dislocation. Reviewed, Interpreted and Dictated by Richard Lloyd III, MD Transcribed by Tracey Pettit Authenticated by Richard Lloyd III, MD on 07/10/2021 09:19:08 AM [facility]
--- NOTE | 2021-07-10 07:40 | PC.NURSE ---
notified rad of new xray order, spoke with Russell.
--- NOTE | 2021-07-10 07:40 | HMH.EDGENADL ---
ED Disposition Clinical Impression: Dislocation, finger closed Qualifiers: Encounter type: initial encounter Qualified Code(s): S63.259A - Unspecified dislocation of unspecified finger, initial encounter Disposition: Home, Self-Care Condition on Discharge: Good Instructions: DI for Finger Dislocation Additional Instructions: advil/tyenol and see pcp for follow up Referrals: Jessica Paulino PA [Primary Care Provider] - - Critical Care Critical Care Time: No Attestation: On 07/10/21, the high probability of a clinically significant, sudden or life threatening deterioration of the following system(s) required my full and direct attention, intervention and personal management. The time I documented below is in addition to time spent performing reported procedures but includes the following listed in this critical care notation. Medical Decision Making - Medical Records Medical records reviewed: Yes: I reviewed the patient's medical records. - [place] Inquiry Pt receiving controlled substance: No Vital Signs: 07/10/21 07:06 Temperature 98.1 F Temperature Source Oral Pulse Rate [Right Radial] 89 Respiratory Rate 16 Blood Pressure [Right Arm] 140/84 Blood Pressure Mean [Right Arm] 102 Blood Pressure Source [Right Arm] Automatic Cuff Blood Pressure Position [Right Arm] Sitting 02 Sat by Pulse Oximetry 96 Oxygen Delivery Method Room Air - Lab Data Lab results reviewed: Yes: I reviewed the patient's lab results. Orders (Tests/Meds): ORDERS Category Date Time Status XR finger LT min 2V Stat Exams 07/10/21 07:26 Taken XR finger LT min 2V Stat Exams 07/10/21 07:39 Ordered - Radiology Data #1 Image(s): Hand Image Reviewed: Yes I reviewed the patient's radiology image Preliminary Findings: Abnormal (dislocation lt fifth finger ) Medical Decision Narrative: no def fx seen and reduced w/o diff - General Adult HPI - General Chief complaint: PAIN Stated complaint: [id number] left pinky finger injury Time Seen by Provider: 07/10/21 07:30 Mode of Arrival: Ambulatory Source of Information: Patient, Medical Record Limitations: No Limitations Description of Symptoms (Recalled from ER Triage Doc. by RN): pt reports he was walking up a set of stairs, tripped, reached out to catch himself and injured his L pinky. Deformity noted to L pinky. - History of Present Illness HPI narrative: fell this am with lt fifth finger injury Onset (ago): hour(s) Location: left, upper extremity Severity: moderate Associated symptoms: denies other symptoms Treatments prior to arrival: none - Related Data Home Medications Medication Instructions Recorded Confirmed Buprenorphine HCl/Naloxone HCl 1.5 each SL DAILY 02/11/19 02/26/21 [Buprenorphine-Nalox 8-2 mg Tab] Fluoxetine HCl [Prozac 20mg 20 mg PO DAILY 02/11/19 02/26/21 Capsule] Quetiapine Fumarate [Seroquel 100 mg PO BID 02/11/19 02/26/21 100mg tablet] Allergies Allergy/AdvReac Type Severity Reaction Status Date / Time No Known Allergies Allergy Verified 02/26/21 13:19 [facility] History - Hepatitis A Screen Drug use history?: No High risk sexual behaviors?: No History of sexually transmitted infection?: No Currently employed?: No Childcare worker?: No Do you have indoor plumbing?: Yes Do you have electricity?: Yes Attestation statement:: This patient has been screened for Hepatitis A risk factors. I have reviewed the patient's past medical history: Yes Medical History: Reports:: Anxiety, Depression Denies:: Cancer, Diabetes Mellitus Type 1, Diabetes Mellitus Type 2, MRSA Laterality Cases: Bilateral: Tonsillectomy Other Surgeries: Yes: Hernia Repair, Other (Spider bite) Amputation: No Fractures: No - Social History Smoking Status: Current every day smoker Tobacco Type: cigarettes, e-cigarettes # Packs/Day (cigarettes): 1 #Yrs smoked (if former smoker): 1 Alcohol Intake: never Substance Use Type: opiates,
[2021-07-10 08:12] VITALS: BP 128/82; PULSE 78; RESP 20; TEMP 36.7; O2SAT 97
== END 2021-07-10 08:13 | disposition home or self-care (01) ==
PROVIDERS: Emergency Provider Emergency Medicine; PCP Physician Assistant
DX: S63.287A Dislocation of proximal interphalangeal joint of left little finger, initial encounter (principal); W10.9XXA Fall (on) (from) unspecified stairs and steps, initial encounter; Y92.019 Unspecified place in single-family (private) house as the place of occurrence of the external cause; F17.210 Nicotine dependence, cigarettes, uncomplicated; F41.8 Other specified anxiety disorders
CPT/HCPCS: 26770; 73140; 99283

== ENCOUNTER 2022-01-08 14:40 | Emergency (ER) | payer OTHER, SELFPAY ==
[2022-01-08 14:41] VITALS: BP 130/79; PULSE 100; RESP 18; TEMP 37.4; O2SAT 98; BMI 28.5
[2022-01-08 15:00] VITALS: BP 115/59; PULSE 94; O2SAT 98
[2022-01-08 15:02] LABS: Coronavirus 19, PCR Not Detected (NotDetected); Influenza A, PCR Not Detected (NotDetected); Influenza B, PCR Not Detected (NotDetected)
--- NOTE | 2022-01-08 15:06 | PC.NURSE ---
ED MD AT BEDSIDE FOR EVALUATION
--- NOTE | 2022-01-08 15:10 | CT_ITS ---
FINAL REPORT CLINICAL HISTORY: abdo pain, vomiting FINDINGS: CT OF THE ABDOMEN AND PELVIS WITH CONTRAST Axial CT images of the abdomen and pelvis were obtained after the administration of intravenous contrast. Coronal reformatted images were also obtained and reviewed.This study was performed with techniques to keep radiation doses as low as reasonably achievable (ALARA). Individualized dose reduction techniques using automated exposure control or adjustment of mA and/or kV according to the patient's size were employed. Abdomen: There is mild atelectasis or scarring in the lung bases. There is a calcified granuloma in the right lung base. The heart is normal in size. There is a less than 1 cm probable cyst in the right hepatic lobe. The gallbladder is present. The spleen is unremarkable. No adrenal mass is present. The pancreas has an unremarkable appearance. The kidneys are normal, without evidence of mass or hydronephrosis. The aorta is normal in caliber. There is no free fluid or adenopathy. Pelvis: The appendix is normal. The urinary bladder is unremarkable. No inflammatory process is seen. There are multiple enlarged bilateral inguinal lymph nodes favored to be reactive over neoplastic. There are multiple fluid-filled bowel loops that are nonspecific and could represent enteritis. There is a moderate to large amount of retained stool greatest in the rectum. IMPRESSION: Possible enteritis. Moderate to large amount of retained stool. Normal appendix. Reviewed, Interpreted and Dictated by Richard Lloyd III, MD Transcribed by Jim Hauser Authenticated and [facility]
--- NOTE | 2022-01-08 15:12 | HMH.EDGENADL ---
Discharge Plan Disposition Patient Disposition: Home, Self-Care Condition: Good Prescriptions Prescriptions: New ondansetron 4 mg tablet,disintegrating 4 mg PO TID PRN (Reason: Nausea And Vomiting) Qty: 10 0RF No Action quetiapine 100 MG tablet 100 mg PO BID fluoxetine 20 MG capsule 20 mg PO DAILY buprenorphine-naloxone 1 EACH tablet, sublingual 1.5 each SL DAILY Referrals Follow up/Referrals: Jessica Paulino PA [Primary Care Provider] - See instructions Activity Restrictions/Add. Instructions Additional Instructions/Restrictions: Additional instructions for VOMITING/DIARRHEA: See your physician as soon as possible for further evaluation. Drink plenty of fluids. Return immediately if severe abdominal pain, uncontrollable vomiting, shortness of breath, fever, bloody diarrhea, vomiting of blood or abdominal distention. Clinical Impressions Clinical Impression: Gastroenteritis Instructions Patient Instructions: DI for Diarrhea and Traveler's Diarrhea -- Adult, DI for Diarrhea and Traveler's Diarrhea -- Child, DI for Nausea -- Adult, DI for Nausea -- Child Discharge ED Provider: Caesar Arredondo General Adult HPI General Chief complaint: Nausea/Vomiting/Diarrhea Stated complaint: Dizzy, sweating, vomitting Time Seen by Provider: 01/08/22 15:04 Mode of Arrival: Ambulatory Source of Information: Patient Limitations: No Limitations Description of Symptoms (Recalled from ER Triage Doc. by RN): PT REPORTS N/V/D UPON WAKING UP THIS AM. REPORTS BODYACHES AND CHILLS. History of Present Illness HPI narrative: Patient states he woke up this morning with profuse amounts of intractable vomiting, 2 episodes of diarrhea, abdominal pain, body aches, chills. No fever documented. No known exposures. No URI or urinary symptoms. Related Data Home Medications Medication Instructions Recorded Confirmed buprenorphine 8 mg-naloxone 2 mg 1.5 each SL DAILY DRUG ABUSE 02/11/19 02/26/21 sublingual tablet fluoxetine 20 mg capsule 20 mg PO DAILY MOOD 02/11/19 02/26/21 quetiapine 100 mg tablet 100 mg PO BID mood 02/11/19 02/26/21 Previous Rx's Medication Instructions Recorded ondansetron 4 mg disintegrating 4 mg PO TID PRN Nausea And 01/08/22 tablet Vomiting #10 tabs Allergies Allergy/AdvReac Type Severity Reaction Status Date / Time No Known Allergies Allergy Verified 02/26/21 13:19 PFSH PFS Medical History (Updated 01/08/22 @ 17:04 by Caesar Arredondo MD) Discoloration of skin of lower leg Edema Tobacco dependence syndrome Social History Smoking Status: Current every day smoker tobacco type: cigarettes packs per day: 1 and e-cigarettes alcohol intake: never substance use type: former substance user and opiates current occupational status: unemployed Travel in the last 8 weeks: None household members: family housing: house caffeine: Yes ROS Obtained: Yes All systems reviewed & no additional complaints except as documented Constitutional Constitutional: Reports body ache and Denies fever(s) ENT Ears, Nose, Mouth, and Throat: Denies nasal discharge and Denies sore throat Cardiovascular Cardiovascular: Denies chest pain Respiratory Respiratory: Denies shortness of breath and Denies cough Gastrointestinal Gastrointestingal: Reports abdominal pain, diarrhea and vomiting; Denies hematochezia Genitourinary Male Genitourinary: Denies difficulty urinating Physical Exam General General appearance: alert and in no apparent distress Head Head exam: atraumatic and normocephalic Eye Eye exam: Present normal appearance and EOMI ENT ENT exam: Present mucous membranes dry Neck Neck exam: Present normal inspection and trachea midline Chest Chest inspection: Present normal inspection and symmetric chest wall rise Respiratory Respiratory exam: Present normal lung sounds bilaterally; Absent respiratory distress Cardiovascular Cardiovascular exam: Present regula
--- NOTE | 2022-01-08 15:20 | PC.NURSE ---
PT TO CT PER WC AT THIS TIME
[2022-01-08 15:34] LABS: Basophils # 0.1 K/mm3 (0-0.2); Basophils % 0.7 % (0.1-2.0); Eosinophils # 0.3 K/mm3 (0.0-0.4); Eosinophils % 1.8 % (0.1-12.0); Hematocrit 39.3 % (42.0-52.0); Hemoglobin 12.6 g/dL (14.1-18.0); Lymphocytes # 0.3 K/mm3 (0.7-4.5); Lymphocytes % 1.9 % (10-50); Mean Corpuscular HGB Conc 32.1 g/dL (31.8-35.4); Mean Corpuscular Hemoglobin 29.8 pg (27.0-31.2); Mean Corpuscular Volume 92.9 fl (80-94); Mean Platelet Volume 7.4 fl (7.4-10.4); Monocytes # 0.5 K/mm3 (0.1-1.0); Monocytes % 3.4 % (1.7-9.3); Neutrophils # 12.6 K/mm3 (1.8-7.8); Neutrophils % 92.2 % (37.0-80.0); Platelet Count 344 K/mm3 (142-424); Red Blood Count 4.23 M/mm3 (4.60-6.20); Red Cell Distribution Width 13.9 % (11.5-17.5); White Blood Count 13.7 K/mm3 (4.8-10.8)
[2022-01-08 15:43] LABS: Alanine Aminotransferase 27 U/L (12-78); Albumin/Globulin Ratio 1.4 (1.1-1.8); Alkaline Phosphatase 168 U/L (38-126); Anion Gap 7.3 mEq/L (5-15); Aspartate Amino Transferase 29 U/L (17-59); Bilirubin,Total 0.5 mg/dl (0.2-1.3); Blood Urea Nitrogen 9 mg/dl (9-20); Calcium 8.7 mg/dl (8.4-10.2); Carbon Dioxide 28 mmol/L (22.0-30.0); Chloride 103 mmol/L (98-107); Creatinine Clearance Estimated 204 mL/min (50-200); Estimated Glomerular Filt Rate 131 ml/min (>60); GFR (African American) 158 ML/MIN (>60); Globulin 2.8 g/dL (1.3-3.2); Glucose 123 mg/dl (74-100); Potassium 3.3 mmoL/L (3.5-5.1); Sodium 135 mmol/L (136-145); Total Protein,Serum 6.8 g/dl (6.3-8.2)
--- NOTE | 2022-01-08 15:43 | PC.NURSE ---
PT UNABLE TO PROVIDE URINE SPECIMEN AT THIS TIME
[2022-01-08 15:44] LABS: MANUAL DIFFERENTIAL MANUAL DIFFERENTIAL (MANUAL DIFF)
--- NOTE | 2022-01-08 15:52 | PC.NURSE ---
WARM BLANKET PROVIDED
[2022-01-08 15:58] LABS: Lipase < 10 U/L (23-300)
[2022-01-08 16:00] LABS: Lymphocytes % 3 % (10-50); Monocytes % 1 % (2-9); Neutrophils % 96 % (42-76); Total Cells Counted 100
[2022-01-08 16:02] LABS: Platelet Estimate Normal; Stomatocytes 1+
[2022-01-08 16:13] VITALS: BP 112/72; PULSE 96; O2SAT 96
--- NOTE | 2022-01-08 16:16 | PC.NURSE ---
PT MEDICATED PER EMAR, ADDITIONAL WARM BLANKET PROVIDED. REMAINS UNABLE TO PROVIDE UA. NO NEEDS AT THIS TIME
[2022-01-08 16:30] VITALS: BP 101/64; PULSE 85; O2SAT 94
--- NOTE | 2022-01-08 16:36 | PC.NURSE ---
ER MD at speaking with patient regarding update on POC/results
[2022-01-08 17:00] VITALS: BP 99/65; PULSE 80; O2SAT 95
--- NOTE | 2022-01-08 17:17 | PC.NURSE ---
PT ASSISTED TO BR UA COLLECTED
[2022-01-08 17:26] VITALS: BP 99/65; PULSE 80; RESP 18; TEMP 37.2; O2SAT 99
[2022-01-08 17:32] LABS: Microscopic, Urine URINE MICROSCOPIC (MICROSCOPIC)
[2022-01-08 17:43] LABS: Appearance,Urine CLEAR (Clear); Bilirubin,Urine Negative (Negative); Blood, Urine Negative (Negative); Color,Urine YELLOW (Yellow); Glucose,Urine (UA) Negative (Negative); Ketones,Urine Negative (Negative); Leukocyte Esterase,Urine TRACE (Negative); Nitrate,Urine Negative (Negative); Protein,Urine Negative (Negative); Urobilinogen,Urine 0.2 EU/dl (0.2)
[2022-01-08 18:04] LABS: Bacteria,Urine 1+ /lpf
== END 2022-01-08 17:25 | disposition home or self-care (01) ==
PROVIDERS: Emergency Provider Emergency Medicine; PCP Physician Assistant
DX: K52.9 Noninfective gastroenteritis and colitis, unspecified (principal)
CPT/HCPCS: 74177; 80053; 81001; 83690; 85007; 85025; 96365; 96375; 99284; C9803; J2405; Q9967; U0003; U0005